=== PATIENT | male | born 1990 | race Caucasian/White ===

== ENCOUNTER 2018-08-31 16:43 | Emergency (ER) | payer MEDICARE ==
[~2018-08-31] VITALS: Ht 177.8 cm; Wt 136.4 kg
[2018-08-31 16:49] VITALS: Ht 177.8 cm; Wt 136.4 kg
[2018-08-31 17:51] LABS: BASOPHILS 0.3 % (0-2); EOSINOPHILS 2.5 % (0-7); HEMOGLOBIN 14.4 g/dL (13.5-17.5); IMMATURE GRANULOCYTES 0.8 % (0-5); LYMPHOCYTES 33.6 % (15-50); MCH 33.3 pg (26.0-34.0); MCHC 35.1 g/dL (31.0-37.0); MCV 94.9 fL (80.0-100.0); MEAN PLATELET VOLUME 9.9 fL (7.4-10.4); MONOCYTES 10.4 % (2-11); NEUTROPHILS 52.4 % (40-80); RBC 4.32 10x6/uL (4.20-6.10); RDW 12.1 % (11.5-14.5)
[2018-08-31 17:59] LABS: PLATELET COUNT 200 10x3/uL (130-400)
[2018-08-31 18:07] LABS: ALBUMIN 4.1 g/dL (3.4-5.0); ALKALINE PHOSPHATASE 65 U/L (46-116); ALT (SGPT) 40 U/L (10-68); BILIRUBIN - TOTAL 0.18 mg/dL (0.2-1.3); CALC OSMOLALITY 280 mosm/kg (275-300); CALCIUM 9.6 mg/dL (8.5-10.1); CARBON DIOXIDE 27.1 mmol/L (21.0-32.0); CHLORIDE - SERUM 103 mmol/L (98-107); CREATININE - SERUM 0.9 mg/dL (0.6-1.3); GLUCOSE 118 mg/dL (74-106); POTASSIUM - SERUM 4.4 mmol/L (3.5-5.1); PROTEIN - SERUM 7.6 g/dL (6.4-8.2); SODIUM 140 mmol/L (136-145); UREA NITROGEN 16 mg/dL (7-18); eGFR NON AFRICAN AMERICAN > 90 mL/min (90-120)
[2018-08-31 18:08] LABS: VALPROIC ACID (DEPAKOTE) 101.7 ug/mL (50.0-100.0)
[2018-08-31 18:50] LABS: UDS - AMPHET NEGATIVE QUAL (NEGATIVE); UDS - BARB NEGATIVE QUAL (NEGATIVE); UDS - BENZO NEGATIVE QUAL (NEGATIVE); UDS - COCAINE NEGATIVE QUAL (NEGATIVE); UDS - OPIATE NEGATIVE QUAL (NEGATIVE); UDS - PCP NEGATIVE QUAL (NEGATIVE); UDS - THC NEGATIVE QUAL (NEGATIVE)
[2018-08-31 19:29] VITALS: BP 132/82
== END 2018-08-31 19:30 | disposition home or self-care (01) ==
LOC: D.ER 16:43
PROVIDERS: Emergency Medicine
DX: F31.9 Bipolar disorder, unspecified (principal); G40.909 Epilepsy, unspecified, not intractable, without status epilepticus; F91.3 Oppositional defiant disorder